=== PATIENT | female | born 1980 | race Caucasian/White ===

== ENCOUNTER 2017-06-26 19:51 | Emergency (ER) | payer OTHER ==
[~2017-06-26] VITALS: Ht 149.9 cm; Wt 103.7 kg
[~2017-06-26 19:51] MED LIST: FRCT/ PO
[2017-06-26 19:55] VITALS: TEMP 36.8; Ht 149.9 cm; Wt 103.7 kg
--- NOTE | 2017-06-26 20:14 | EMERGENCY ROOM VISIT NOTE ---
History Report prepared by Alban: Quincy Dennis Under the Supervision of: Dr. Homer Stevens M.D. First contact with patient: 20:01 Chief Complaint: WOUND INFECTION Stated Complaint: BOIL ON INSIDE OF LEG History of Present Illness The patient is a 36 year old female who presents to the Emergency Room with complaints of a persistent abscess on the inside of her right thigh that started 2 days ago. She says that the area is very painful and sensitive. The patient notes that she tried to stick a brand new safety pin into the abscess earlier, and it bled. She also reports fatigue. The patient adds that she has another abscess near the new abscess that has been unchanged for 5 years and has never bothered her. She notes that she is not diabetic. The patient does smoke cigarettes. She denies any abdominal pain. The patient does note that she is currently anxious. Source of History: patient Onset: 2 days ago Position: other (right thigh) Quality: other (abscess) Timing: other (persistent) Associated Symptoms: + fatigue, No abdominal pain Note: Associated symptoms: Pain and sensitivity around abscess on right thigh. Anxious. Review of Systems See HPI for pertinent positives and negatives. A total of ten systems were reviewed and were otherwise negative. Past Medical & Surgical Medical Problems: (1) UTI (urinary tract infection) Surgical Problems: (1) H/O umbilical hernia repair (2) S/P cholecystectomy Social History Problems: (1) Tobacco smoker, less than 10 cigarettes per day Family History Skin abscess Social History Smoking Status: Current Every Day Smoker Marital Status: Housing Status: lives with family Occupation Status: unemployed Current/Historical Medications Scheduled Cephalexin Monohydrate (Keflex), 500 MG PO QID Sulfa/Trimethoprim (Bactrim Ds 800MG/160MG), 2 TAB PO BID Scheduled PRN Acetamin/Butalbital/Caffeine (Fioricet), 1 TAB PO Q8 PRN for Headache Acetaminophen (Tylenol), 500-1,000 MG PO DIRECTED PRN for Pain Ibuprofen (Advil), 200-600 MG PO Q4H PRN for Pain Allergies Coded Allergies: Cat Dander (Verified Allergy, Intermediate, "IF LICKED BY CAT-RASH"., ) Dog Dander (Verified Allergy, Intermediate, "IF LICKED BY DOG-RASH"., ) Horse Dander (Verified Allergy, Intermediate, THROAT IRRITATION-BRONCHITIS , 06/26/17) Acetaminophen (Verified Allergy, Unknown, "WITHDRAWALS", 06/26/17) [place] (Verified Allergy, Unknown, UNKNOWN, 06/26/17) Hydrocodone (Verified Allergy, Unknown, "WITHDRAWALS", 06/26/17) [place] (Verified Allergy, Unknown, UNKNOWN, 06/26/17) [place] (Verified Allergy, Unknown, UNKNOWN, 06/26/17) Physical Exam Vital Signs Date Time Temp Pulse Resp B/P (MAP) Pulse Ox O2 Delivery O2 Flow Rate FiO2 06/26/17 22:51 91 19 121/73 98 06/26/17 20:30 105 21 134/86 95 Room Air 06/26/17 19:55 36.8 105 20 149/96 95 Room Air Physical Exam GENERAL: Awake, alert, well-appearing, in no distress HENT: Normocephalic, atraumatic. Oropharynx unremarkable. EYES: Normal conjunctiva. Sclera non-icteric. NECK: Supple. No nuchal rigidity. FROM. No JVD. RESPIRATORY: Clear to auscultation. CARDIAC: Regular rate, normal rhythm. Extremities warm and well perfused. Pulses equal. ABDOMEN: Soft, non-distended. No tenderness to palpation. No rebound or guarding. No masses. RECTAL: Deferred. MUSCULOSKELETAL: Chest examination reveals no tenderness. The back is symmetrical on inspection without obvious abnormality. There is no CVA tenderness to palpation. No joint edema. LOWER EXTREMITIES: Calves are equal size bilaterally and non-tender. No edema. No discoloration. NEURO: Normal sensorium. No sensory or motor deficits noted. SKIN: 1 cm area of fluctuance on the proximal medial aspect of the right upper leg with induration. No crepitus or overlying erythema or warmth. Medical Decision & Procedures ER Provider Diagnostic Interpretation: EM MD bedside US: Ultrasound demonstrates 0.5 x 1 cm fluid collection consistent with abscess. Medications Administered Medications (Trade) Dose Ordered Sig/Lucien Route Start Time Stop Time Status Last Admin Dose Admin Tetracaine/ Epinephrine/ Lidocaine (L.e.t. Gel 4%/ 1:100/0.5%) 1 ea STK-MED ONCE .ROUTE 06/26/17 20:19 06/26/17 20:20 DC 06/26/17 20:28 1 EA Lidocaine HCl (Xylocaine 1% Inj (Local)) 20 ml STK-MED ONCE .ROUTE 06/26/17 20:21 06/26/17 20:22 DC 06/26/17 20:29 20 ML Acetaminophen (Tylenol Tab) 1,000 mg NOW STAT PO 06/26/17 21:45 06/26/17 21:49 DC 06/26/17 22:33 1,000 MG Cephalexin Monohydrate (Keflex Cap) 500 mg NOW ONCE PO 06/26/17 21:45 06/26/17 21:49 DC 06/26/17 22:31 500 MG Cephalexin Monohydrate (Keflex 500MG Home Pack) 1 homepack NOW ONCE PO 06/26/17 21:45 06/26/17 21:49 DC 06/26/17 22:30 1 HOMEPACK Trimethoprim/ Sulfamethoxazole (Septra Ds 800/ 160MG Tab) 2 tab NOW ONCE PO 06/26/17 21:45 06/26/17 21:49 DC 06/26/17 22:32 2 TAB Procedure Incision & Drainage Indication: Abscess. Location: Proximal right medial thigh. Verbal consent was obtained after the risks and benefits were explained, including but not limited to bleeding, scarring, infection, pain, and bone/joint /nerve damage. At this time, the risks of the procedure are less than the risks of NOT performing the procedure. A time out was taken and the correct patient and site identified. The skin was prepped with betadine and a sterile field set. The wound was anesthetized with 5 cc of 1% lidocaine without epinephrine. The abscess cavity was entered with a number 11 blade and purulent material expressed. Copious irrigation was performed using normal saline. The wound was explored for foreign bodies and none found. Debridement was not performed. Packing placed and a sterile dressing applied. Detailed wound care instructions and signs and symptoms of worsening infection reviewed with the patient. No complications and the patient tolerated the procedure well. ED Course 2002: The patient was evaluated in room C12B. A complete history and physical exam was performed. 2144: Ordered Keflex 500MG Home Pack 1 homepack PO, Keflex Cap 500 mg PO, Tylenol Tab 1000 mg PO. 2145: I reevaluated the patient and she is resting after the I&D. The patient verbally expressed understanding and agreement of the treatment plan. The patient will be discharged. Medical Decision I reviewed the patient's past medical history, medications, and the nursing notes as described above. Differential diagnosis includes but is not limited to: abscess vs cellulitis vs ingrown hair vs reactive lymph node. Patient is a 36-year-old woman presents to the emergency department with the complaint of a right thigh boil per history of present illness. On exam the patient has a 1 cm area of induration and fluctuance on the proximal medial aspect of her right thigh. Bedside ultrasound shows a 1 by half centimeter fluid collection consistent with abscess. Patient was consented and I&D was performed successfully with purulent discharge expressed. Given the patient is an active smoker will treat with antibiotics despite successful I&D of a simple abscess without overlying cellulitis. Findings and plan for follow-up d/w patient. Patient agreeable and d/c'd per discharge instructions. Medication Reconcilliation Current Medication List: was personally reviewed by me Blood Pressure Screening Patient's blood pressure: Elevated blood pressure Blood pressure disposition: Elevated BP felt to be situational Impression Primary Impression: Abscess Scribe Attestation The scribe's documentation has been prepared under my direction and personally reviewed by me in its entirety. I confirm that the note above accurately reflects all work, treatment, procedures, and medical decision making performed by me. Departure Information Dispostion Home / Self-Care Prescriptions Sulfa/Trimethoprim (Bactrim Ds 800MG/160MG) Tab 2 TAB PO BID for 7 Days, #28 TAB Prov: Homer Stevens M.D. 06/26/17 Cephalexin Monohydrate (Keflex) 500 Mg Cap 500 MG PO QID for 7 Days, #28 CAP Prov: Homer Stevens M.D. 06/26/17 Referrals Christiano Roberto M.D. (PCP) Patient Instructions Drainage Abscess, ED Abscess IandD, My [facility] [address], Sitz Bath Additional Instructions Please follow up with your primary care physician in the next 1-3 days for reevaluation. Your abscess was drained successfully in the emergency department. Otherwise, your exam did not show signs of an emergent condition at this time. Acetaminophen and ibuprofen for pain as needed. Sitz bath 4 times daily for additional relief. Antibiotics as directed. Return to the emergency department for worsening symptoms as described in the accompanying instructions.
[2017-06-26] MEDS ORDERED: LIDOCAINE/EPINEPH/TETRACAINE 1 EA SYR ONE (20:19)
[2017-06-26] MEDS ORDERED: LIDOCAINE HCL 1% 20 ML VIAL ONE (20:21)
[2017-06-26] MEDS ORDERED: IBUP-1050 PO (20:48)
[2017-06-26] MEDS ORDERED: ACET-1256 PO (20:48)
[2017-06-26] MEDS ORDERED: CEPHALEXIN MONOHYDRATE 250 MG CAP PO ONE (21:45)
[2017-06-26] MEDS ORDERED: SULFAMETHOXAZOLE/TRIMETHOPRIM DS 800/160MG TAB PO ONE (21:45)
[2017-06-26] MEDS ORDERED: CEPHALEXIN 500MG HOME PACK 1 EA BTL PO ONE (21:45)
[2017-06-26] MEDS ORDERED: ACETAMINOPHEN 500 MG TAB PO STA (21:45)
[2017-06-26] MEDS ORDERED: CEPH500C PO (21:50)
[2017-06-26] MEDS ORDERED: SULF800T23 PO (21:50)
[2017-06-26 22:51] VITALS: BP 121/73; PULSE 91; O2SAT 98
== END 2017-06-26 22:40 | disposition home or self-care (01) ==
LOC: C.EDB 19:54 → C.EDC 22:40
DX: L02.415 Cutaneous abscess of right lower limb (principal); F17.210 Nicotine dependence, cigarettes, uncomplicated; F41.9 Anxiety disorder, unspecified; Z87.440 Personal history of urinary (tract) infections; Z90.49 Acquired absence of other specified parts of digestive tract

== ENCOUNTER → 2017-07-23 | Outpatient (CLI) | payer OTHER ==
[~2017-07-23] MED LIST changes: +ACET-1256 PO; +IBUP-1050 PO
[2017-07-23 13:12] LABS: BASO % 0.4 %; BASO ABS # 0.04 K/uL (0-0.2); COMPLETE YES; EOS % 2.1 %; HEMATOCRIT 41.8 % (37-47); IG% 0.6 %; LYMPH % 38.7 %; LYMPH ABS # 3.47 K/uL (1.2-3.4); MEAN CELL VOLUME 94.6 fL (80-100); MEAN CORPUSCULAR HEMOGLOBIN 31.7 pg (25-34); MEAN CORPUSCULAR HGB CONC 33.5 g/dl (32-36); MEAN PLATELET VOLUME 9.1 fL (7.4-10.4); MONO % 4.7 %; NEUT % 53.5 %; PLATELET COUNT 307 K/uL (130-400); RED BLOOD COUNT 4.42 M/uL (4.2-5.4); WHITE BLOOD COUNT 8.97 K/uL (4.8-10.8)
== END | disposition home or self-care (01) ==
LOC: C.LAB1850 11:08
PROVIDERS: ATTEND Physician Assistant
DX: N92.0 Excessive and frequent menstruation with regular cycle (principal)